=== PATIENT | male | born 1960 | race Caucasian/White ===

== ENCOUNTER → 2018-03-26 | Outpatient (CLI) | payer BC | LOC: BMCIMAGING 13:04 | PROVIDERS: ATTEND Family Medicine | DX: S52.572A Other intraarticular fracture of lower end of left radius, initial encounter for closed fracture (principal); S52.612A Displaced fracture of left ulna styloid process, initial encounter for closed fracture; V18.0XXA Pedal cycle driver injured in noncollision transport accident in nontraffic accident, initial encounter; Y93.55 Activity, bike riding ==

== ENCOUNTER → 2018-04-03 | Outpatient (CLI) | payer BC | LOC: BMCIMAGING 08:44 | PROVIDERS: ATTEND Orthopaedic Surgery Hand Surgery | DX: S52.592A Other fractures of lower end of left radius, initial encounter for closed fracture (principal); S52.612A Displaced fracture of left ulna styloid process, initial encounter for closed fracture ==

== ENCOUNTER → 2018-04-17 | Outpatient (CLI) | payer BC | LOC: BMCIMAGING 09:20 | PROVIDERS: ATTEND Orthopaedic Surgery Hand Surgery | DX: S52.612D Displaced fracture of left ulna styloid process, subsequent encounter for closed fracture with routine healing (principal) ==